=== PATIENT | male | born 1950 | race Caucasian/White ===

== ENCOUNTER 2017-06-23 08:38 | Outpatient (CLI) | payer MEDICARE ==
--- NOTE | 2017-06-23 12:54 | XRAY Report ---
DATE OF SERVICE: 06/23/2017 FOUR VIEW RIGHT WRIST: 06/23/2017 CLINICAL INDICATION: Bilateral wrist pain. FINDINGS: AP, lateral, oblique, scaphoid views of the right wrist demonstrate osteoarthritis in the radiocarpal joint spaces and the first metacarpophalangeal joint, moderate. There is no evidence of acute fracture or dislocation. No radiopaque foreign body is seen in the soft tissues. IMPRESSION: MODERATE OSTEOARTHRITIS. TD: 06/23/2017 13:53
--- NOTE | 2017-06-23 12:55 | XRAY Report ---
DATE OF SERVICE: 06/23/2017 THREE VIEW LEFT WRIST: 06/23/2017 CLINICAL INDICATION: Pain. FINDINGS: AP, lateral, oblique views of the left wrist demonstrate mild osteoarthritis of the first carpometacarpal joint. There is no evidence of acute fracture or dislocation. No foreign body is seen in the soft tissues. IMPRESSION: MILD OSTEOARTHRITIS. TD: 06/23/2017 13:54
--- NOTE | 2017-06-23 13:01 | XRAY Report ---
DATE OF SERVICE: 06/23/2017 BILATERAL HIPS AND PELVIS: 06/23/2017 CLINICAL INDICATION: Bilateral pain. FINDINGS: Frontal view of the hips and pelvis and bilateral frogleg lateral views of the hips demonstrate mild bilateral hip osteoarthritis. There is no evidence of acute fracture or dislocation. Degenerative changes are also noted in the lower lumbar spine and sacroiliac joints. IMPRESSION: MILD BILATERAL HIP OSTEOARTHRITIS. TD: 06/23/2017 13:56
== END 2017-06-23 08:39 | disposition home or self-care (01) ==
LOC: DI 08:38
PROVIDERS: ATTEND Family Medicine
DX: M19.032 Primary osteoarthritis, left wrist (principal); M19.031 Primary osteoarthritis, right wrist; M16.0 Bilateral primary osteoarthritis of hip
CPT/HCPCS: 73521

== ENCOUNTER 2023-04-16 11:51 | Outpatient (CLI) | payer MEDICARE ==
--- NOTE | 2023-04-16 13:26 | XRAY Report ---
PROCEDURE: Cervical Spine 2 View INDICATIONS: LEFT CERVICAL RADICULOPATHY, LFT PARIETAL HEADACHE TECHNIQUE: 3 view(s) of the cervical spine were acquired. COMPARISON: None. FINDINGS: Bones: No fractures or dislocations to the C7 level. The lateral masses of C1 appear intact on the odontoid view. No suspicious bony lesions. There is some jjzf-sa-pwetkkog degenerative disc disease present C3-C4, C4-C5, and C5-C6. There is mo derate to severe degenerative disc disease present C6-C7. Soft tissues: No prevertebral soft tissue swelling. There is some atherosclerotic calcifications in both carotid bulb regions. IMPRESSION: 1. No evidence for acute osseous abnormality involving the cervical spine. 2. Jyru-yp-glpypvyi degenerative disc disease present C3-4, C4-5, and C5-C6. 3. Moderate to severe degenerative disc disease present C6-C7. 4. Atherosclerotic calcifications of both carotid bulb regions. Reviewed by: David Fernandez MD on 04/16/2023 1:25 PM PST Approved by: David Fernandez MD on 04/16/2023 1:25 PM PST Station ID: [id number]
== END 2023-04-16 11:52 | disposition home or self-care (01) ==
LOC: DI 11:51
PROVIDERS: ATTEND Family Medicine
DX: M50.31 Other cervical disc degeneration, high cervical region (principal); I65.23 Occlusion and stenosis of bilateral carotid arteries

== ENCOUNTER 2023-05-22 10:51 | Outpatient (CLI) | payer MEDICARE ==
--- NOTE | 2023-05-22 20:37 | CT Report ---
PROCEDURE: Low Dose Lung Cancer Screen INDICATIONS: LUNG CA SCREENING TECHNIQUE: A CT scan of the chest was performed. Intravenous contrast media was not administered. Images were re corded and evaluated at appropriate window settings. Reformats: axial MIP of the chest, coronal and s agittal. For radiation dose reduction, the following was used: automated exposure control, adjustment of mA and/or kV according to patient size. COMPARISON: None. FINDINGS: Image quality: Excellent. Prior cancer history: No. Lungs and pleura: No pleural effusions. No pneumothorax. Mild centrilobular and paraseptal emphysema . There is a partially calcified solid nodule measuring approximately 14 mm in the anterior right mid dle lobe (176/3) within an area of more prominent paraseptal emphysema versus bleb, possibly scarring versus true nodule. There is mild adjacent traction bronchiectasis. No other suspicious pulmonary no dule is seen. Mediastinum: Heart size is normal. No pericardial effusion. No large vessel abnormality. No mediastin al adenopathy by size criteria. Two vessel coronary artery calcifications. Mildly patulous fluid-david led esophagus with diffuse esophageal wall thickening. Chest wall and lower neck: Thyroid is unremarkable. No axillary or supraclavicular adenopathy by size . Bones: No aggressive osseous abnormality. Bilateral shoulder arthroplasties are present with extensiv e streak artifact at the same level. Upper Abdomen: Bilateral renal cysts. IMPRESSION: Lung RAD: 4A - Suspicious. Recommendation: Follow up in 3 months with LDCT; PET/CT may be used when there is a "e8mm solid compo nent Non-Lung Significant Findings: Coronary Arterial Calcification - Moderate or Severe. Mildly patulous esophagus with diffuse esophageal wall thickening. Recommend correlation for esophagi tis. Reviewed by: Vitaliy Rodriguez MD on 05/22/2023 8:35 PM PST Approved by: Vitaliy Rodrigeuz MD on 05/22/2023 8:35 PM PST Station ID: [id number]
== END 2023-05-22 10:52 | disposition home or self-care (01) ==
LOC: DI 10:51
PROVIDERS: ATTEND Family Medicine
DX: Z12.2 Encounter for screening for malignant neoplasm of respiratory organs (principal); F17.210 Nicotine dependence, cigarettes, uncomplicated; I25.10 Atherosclerotic heart disease of native coronary artery without angina pectoris; K22.89 Other specified disease of esophagus; J43.2 Centrilobular emphysema; R91.1 Solitary pulmonary nodule; J47.9 Bronchiectasis, uncomplicated

== ENCOUNTER 2023-08-21 12:51 | Outpatient (CLI) | payer MEDICARE ==
--- NOTE | 2023-08-22 09:02 | CT Report ---
PROCEDURE: Chest WO INDICATIONS: RML NODULE TECHNIQUE: A CT scan of the chest was performed. Intravenous contrast media was not administered. Images were re corded and evaluated at appropriate window settings. Reformats: axial MIP of the chest, coronal and s agittal. For radiation dose reduction, the following was used: automated exposure control, adjustment of mA and/or kV according to patient size. COMPARISON: Lung screening CT dated 05/22/2023 FINDINGS: Image quality: Diagnostic. Chest wall and lower neck: No thyroid nodule which requires sonographic follow up. No axillary or sup raclavicular adenopathy by size. Lungs and pleura: No consolidation. No pleural effusions. No pneumothorax. Unchanged size and appear ance of medial anterior right middle lobe pulmonary nodules adjacent to a bulla, allowing for differe nces in technique. Previous study was low dose, with 1 mm thick slices. Current study is not low dose , with 3 mm thick slices. Current measurements are 1.5 x 1.4 cm. It is partially calcified and partia lly noncalcified. Mild centrilobular and paraseptal emphysema. Mediastinum: Heart size is normal. No pericardial effusion. Moderate to severe coronary artery calcif ications. No large vessel abnormality. No mediastinal adenopathy by size criteria. Bones: No aggressive osseous abnormality. Bilateral shoulder arthroplasties. Upper Abdomen: Unremarkable. IMPRESSION: 1. Patient with underlying mild emphysematous change. 2. Partially calcified and partially noncalcified lobulated right middle lobe pulmonary nodule is sta ble over a 3 month period. 3. Moderate to severe coronary artery calcifications. Comment: This pulmonary nodule can potentially represent hamartoma or potentially malignancy. Recomme nd either PET CT or serial follow-up CTs to document stability over a 24 month period. Serial chest C T would include next CT in 6 months. Reviewed by: Bennie Ospina MD on 08/22/2023 9:01 AM PDT Approved by: Bennie Ospina MD on 08/22/2023 9:01 AM PDT Station ID: [id number]
== END 2023-08-21 12:52 | disposition home or self-care (01) ==
LOC: DI 12:51
PROVIDERS: ATTEND Family Medicine
DX: R91.1 Solitary pulmonary nodule (principal); J43.2 Centrilobular emphysema; I25.10 Atherosclerotic heart disease of native coronary artery without angina pectoris

== ENCOUNTER 2023-08-21 12:54 | Outpatient (CLI) | payer MEDICARE ==
--- NOTE | 2023-08-22 08:36 | XRAY Report ---
PROCEDURE: Cervical Spine 4-5V INDICATIONS: CERVICAL SPINE TECHNIQUE: 5 views of the cervical spine acquired. COMPARISON: None. FINDINGS: Bones: No fractures or dislocations to the T1 level. Diffuse spondylitic change with multilevel dis c height loss and uncovertebral joint hypertrophy as well as multilevel facet arthropathy bilaterally . Oblique images significant bilateral multilevel bony foraminal narrowing. On the right, there is se joseph foraminal narrowing C5-C6 and to lesser extent at the levels. On the left, there is severe daisy inal narrowing at C5-C6 and C6-C7. There is lesser bony foraminal narrowing at other levels. Soft tissues: No prevertebral soft tissue swelling. IMPRESSION: Diffuse cervical spondylosis. Findings include multilevel bony foraminal narrowing bilaterally. Comment: Cervical spine MRI may potentially be helpful. Reviewed by: Bennie Ospina MD on 08/22/2023 8:35 AM PDT Approved by: Bennie Ospina MD on 08/22/2023 8:35 AM PDT Station ID: [id number]
== END 2023-08-21 12:55 | disposition home or self-care (01) ==
LOC: DI 12:54
PROVIDERS: ATTEND Family Medicine
DX: M48.02 Spinal stenosis, cervical region (principal); M47.22 Other spondylosis with radiculopathy, cervical region; R91.1 Solitary pulmonary nodule; J43.2 Centrilobular emphysema; I25.10 Atherosclerotic heart disease of native coronary artery without angina pectoris

== ENCOUNTER 2023-11-17 12:07 | Outpatient (CLI) | payer MEDICARE ==
--- NOTE | 2023-11-17 15:11 | XRAY Report ---
PROCEDURE: Shoulder 2+V LT INDICATIONS: LEFT SHOULDER PAIN TECHNIQUE: 3 views of the shoulder were acquired. COMPARISON: None. FINDINGS: Bones: No fractures or dislocations. No suspicious bony lesions. Visualized ribs appear intact. Shoulder arthroplasty. Hardware is intact without evidence of hardware fracture or periprosthetic maegan ency to suggest loosening. Soft tissues: No suspicious soft tissue calcifications. The visualized lungs are within normal limi ts. IMPRESSION: Shoulder arthroplasty with hardware appearing intact. Reviewed by: Donya Lopez MD on 11/17/2023 3:10 PM PDT Approved by: Donya Lopez MD on 11/17/2023 3:10 PM PDT Station ID: [id number]
== END 2023-11-17 12:08 | disposition home or self-care (01) ==
LOC: DI.N 12:07
PROVIDERS: ATTEND Family Medicine
DX: M25.512 Pain in left shoulder (principal); Z96.612 Presence of left artificial shoulder joint